=== PATIENT | female | born 2000 | race Caucasian/White ===

== ENCOUNTER 2022-09-17 12:48 | Emergency (ER) | payer SELFPAY ==
[~2022-09-17] VITALS: Ht 152.4 cm; Wt 55.0 kg
[2022-09-17] MEDS ORDERED: BACITRACIN ZINC OINT UDPKT TOP ONE (13:15)
[2022-09-17 13:36] VITALS: BP 120/82
== END 2022-09-17 13:36 ==
LOC: ER 12:48
DX: S91.352A Open bite, left foot, initial encounter (principal); W54.0XXA Bitten by dog, initial encounter; Y93.89 Activity, other specified; Y92.89 Other specified places as the place of occurrence of the external cause; Y99.8 Other external cause status
CPT/HCPCS: 99282